=== PATIENT | male | born 1995 | race African-American/Black ===

== ENCOUNTER 2019-07-11 11:07 | Emergency (ER) | payer MEDICAID, SELFPAY ==
[2019-07-11 11:15] VITALS: BP 98/58; PULSE 72; RESP 19; TEMP 36.6; O2SAT 100
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
--- NOTE | 2019-07-11 11:49 | PC.NURSE ---
Unable to give medication in a timely manner as the med pyxis is out of rocephin and zithromax. Pharmacy at hospital contacted and they will bring meds over about 12:30 today. Patient aware.
[2019-07-11] MEDS: AZITHROMYCIN 250 MG TABLET 1000 MG PO (13:07)
[2019-07-11] MEDS: cefTRIAXone 250 MG VIAL IM (13:07)
== END 2019-07-11 13:33 | disposition home or self-care (01) ==
PROVIDERS: Emergency Provider Nurse Practitioner Family
DX: Z20.2 Contact with and (suspected) exposure to infections with a predominantly sexual mode of transmission (principal); F17.210 Nicotine dependence, cigarettes, uncomplicated
CPT/HCPCS: 81003; 87491; 87591; 96372; 99203; A9270; G0463; J0696

== ENCOUNTER 2024-03-30 16:38 | Emergency (ER) | payer OTHER, SELFPAY ==
--- NOTE | ~2024-03-30 | XR_ITS ---
EXAMINATION: XR wrist RT min 3V DATE: 03/30/2024 17:20 INDICATION: Right wrist pain. TECHNIQUE: 4 views of right wrist were obtained. COMPARISON: None. FINDINGS: Scapholunate dissociation is noted. There is a benign bone island in capitate. No fracture. Joint spaces are normal. IMPRESSION: 1. Scapholunate dissociation. Reviewed, dictated and finalized at location [facility]
[2024-03-30 17:06] VITALS: BP 123/63; PULSE 69; RESP 17; TEMP 36.9; O2SAT 100
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
== END 2024-03-30 18:30 | disposition home or self-care (01) ==
PROVIDERS: Emergency Provider Physician Assistant
DX: S63.014A Dislocation of distal radioulnar joint of right wrist, initial encounter (principal); J45.909 Unspecified asthma, uncomplicated; F17.210 Nicotine dependence, cigarettes, uncomplicated; X50.9XXA Other and unspecified overexertion or strenuous movements or postures, initial encounter; Y93.67 Activity, basketball
CPT/HCPCS: 29125; 73110; 99283

== ENCOUNTER 2024-05-07 16:10 | Emergency (ER) | payer OTHER, SELFPAY ==
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
[2024-05-07 16:44] VITALS: BP 102/64; PULSE 78; RESP 15; O2SAT 98
== END 2024-05-08 08:10 | disposition home or self-care (01) ==
LOC: ANHED 16:52
PROVIDERS: Emergency Provider Physician Assistant
DX: M25.531 Pain in right wrist (principal); F17.210 Nicotine dependence, cigarettes, uncomplicated
CPT/HCPCS: 99283

== ENCOUNTER 2024-10-25 09:13 | Emergency (ER) | payer SELFPAY ==
--- NOTE | ~2024-10-25 | XR_ITS ---
AP, oblique, and lateral views of the right great toe CLINICAL HISTORY: Pain FINDINGS: No acute fracture or dislocation seen. Joint spaces are intact. Soft tissues are unremarkab le. IMPRESSION: Unremarkable exam. Reviewed, dictated and finalized at [facility]. IMPRESSION: Unremarkable exam.
[2024-10-25 09:16] VITALS: BP 147/81; PULSE 76; RESP 18; TEMP 36.6; O2SAT 100
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
== END 2024-10-25 10:37 | disposition home or self-care (01) ==
PROVIDERS: Emergency Provider Emergency Medicine
DX: S99.921A Unspecified injury of right foot, initial encounter (principal); B35.1 Tinea unguium; F17.210 Nicotine dependence, cigarettes, uncomplicated; W22.8XXA Striking against or struck by other objects, initial encounter
CPT/HCPCS: 73660; 99283

== ENCOUNTER 2024-11-19 09:32 | Emergency (ER) | payer SELFPAY ==
[2024-11-19 09:35] VITALS: BP 143/84; PULSE 80; RESP 16; TEMP 36.6; O2SAT 99
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
[2024-11-19 11:10] VITALS: BP 122/89; PULSE 75; RESP 16; O2SAT 100
== END 2024-11-19 11:10 | disposition home or self-care (01) ==
LOC: ANHED 10:48
PROVIDERS: Emergency Provider Emergency Medicine
DX: S39.012A Strain of muscle, fascia and tendon of lower back, initial encounter (principal); X50.0XXA Overexertion from strenuous movement or load, initial encounter; F17.210 Nicotine dependence, cigarettes, uncomplicated
CPT/HCPCS: 99283

== ENCOUNTER 2025-01-17 18:43 | Emergency (ER) | payer SELFPAY ==
[2025-01-17] VITALS (10 sets, daily range): BP systolic 112–139; BP diastolic 70–102; PULSE 58–100; RESP 14–19; TEMP 36.4–36.9; O2SAT 99–100
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
[2025-01-17 20:51] LABS: Hematocrit 42.0 % (42.0-52.0); Hemoglobin 13.8 g/dL (14.0-18.0); Immature Granulocyte Percent A 0.3 % (0-0.5); Lymphocytes Absolute Auto 1.33 K/mm3 (0.9-3.2); Mean Corpuscular HGB Conc 32.9 g/dl (32-36); Mean Corpuscular Hemoglobin 28.0 pg (26-34); Mean Corpuscular Volume 85.2 fl (80-100); Nucleated Red Blood Cells Absolute Auto 0.000 K/mm3 (0.0-0.012); Nucleated Red Blood Cells Perc 0.0 % (0.0-0.2); Platelet Count Result 241 k/mm3 (150-375); Red Blood Count 4.93 M/mm3 (4.6-6.20); White Blood Count 11.4 K/mm3 (4.5-10.0)
[2025-01-17 21:08] LABS: Alanine Aminotransferase 18 U/L (6-50); Albumin Level 5.0 g/dL (3.5-5.1); Alkaline Phosphatase 90 U/L (38-126); Anion Gap 10 mmol/L (4-12); Aspartate Amino Transferase 39 U/L (17-59); Bilirubin,Total 0.7 mg/dL (0.2-1.3); Blood Urea Nitrogen 12 mg/dL (9-20); Calcium 10.1 mg/dL (8.4-10.2); Carbon Dioxide 26 mmol/L (22-30); Chloride 98 mmol/L (98-107); Estimated CRCL calculation 133 ml/min; Estimated Glomerular Filt Rate > 60; Glucose 122 mg/dL (65-110); Magnesium 1.8 mg/dL (1.6-2.3); Potassium 3.9 mmol/L (3.4-5.0); Sodium 134 mmol/L (137-145); Total Protein 9.0 g/dL (6.3-8.2)
[2025-01-17] MEDS: FAMOTIDINE 20 MG/2 ML VIAL IV PUSH (21:37)
[2025-01-17] MEDS: ONDANSETRON INJ 4 MG/2 ML VIAL IV PUSH (21:37)
[2025-01-17 22:29] LABS: Add Urine Microscopic? NO; Glucose Urine UA Negative (Negative); Leukocyte Esterase Ur Negative LEU/UL (Negative); Nitrate Urine Negative (Negative); Specific Grav Ur 1.023 (1.001-1.035)
[2025-01-17] MEDS: SODIUM CHLORIDE 0.9% IV 1,000 ML 999 ML IV CONT (22:46)
[2025-01-17] MEDS: METOCLOPRAMIDE HCL INJ 10 MG/2 ML VIAL IV PUSH (22:47)
[2025-01-17] MEDS: MORPHINE SULFATE (*CRX) 4 MG/ML INJ IV PUSH (22:47)
[2025-01-17 22:49] LABS: Cannabinoid Screen Urine Positive (Negative)
[2025-01-17 22:58] LABS: Appearance Urine Clear (Clear)
[2025-01-18 00:01] VITALS: BP 135/97; PULSE 91; RESP 12; O2SAT 98
[2025-01-18 00:16] VITALS: BP 145/98; PULSE 93; RESP 18; O2SAT 99
== END 2025-01-18 01:23 | disposition home or self-care (01) ==
PROVIDERS: Emergency Medicine; Emergency Provider Student in an Organized Health Care Education/Training Program
DX: R11.2 Nausea with vomiting, unspecified (principal); D72.829 Elevated white blood cell count, unspecified; R82.4 Acetonuria; F12.90 Cannabis use, unspecified, uncomplicated; F17.210 Nicotine dependence, cigarettes, uncomplicated
CPT/HCPCS: 36415; 80053; 80307; 81003; 83735; 85025; 96361; 96374; 96375; 99284; J2270; J2405; J2765; J7030